=== PATIENT | female | born 1990 ===

== ENCOUNTER 2021-10-22 10:13 | Emergency (ER) | payer SELFPAY ==
[2021-10-22] MEDS ORDERED: ONDANSETRON 4 MG ODT TAB PO ONE (11:59)
[2021-10-22] MEDS ORDERED: ACETAMINOPHEN 325 MG TAB PO ONE (11:59)
--- NOTE | 2021-10-22 12:03 | Emergency Department Report ---
HPI - General Chief Complaint: Abdominal Pain Time Seen by Provider: 10/22/21 11:48 - HPI HPI: 30-year-old female presents to the emergency department with complaint of right flank pain with radiation to the lower abdomen, and nausea with 1 episode of vom iting. The flank and abdominal pain has been going on since last night but worsened this morning, when the episode of vomiting occurred. Patient took an Azo for treatment thinking that she had some type of kidney infection. She denies any vaginal bleeding, dysuria, vaginal discharge, fever, but does admit to some chills. Patient is currently 8 weeks . With this she is G2, P0. She has not yet seen an SAIL REPAIR PERSON but says she made an appointment for clinic in the next few weeks. No recent travel or sick contacts at home. ED Past Medical Hx - Past Medical History Previous Medical History?: No - Surgical History Past Surgical History?: No ED Review of Systems ROS: Stated complaint: ABD PAIN Other details as noted in HPI Comment: All other systems reviewed and negative Constitutional: denies: chills, fever Eyes: denies: eye pain, vision change ENT: denies: ear pain, throat pain Respiratory: denies: cough, shortness of breath Cardiovascular: denies: chest pain, palpitations Gastrointestinal: abdominal pain, nausea, vomiting Genitourinary: denies: dysuria, discharge Musculoskeletal: back pain. denies: arthralgia Skin: denies: rash, lesions Neurological: denies: headache, weakness Physical Exam - Physical Exam Vital Signs: Vital Signs 10/22/21 11:43 Temperature 98 F Pulse Rate 84 Respiratory 16 Rate Blood Pressure 110/51 [Left] O2 Sat by Pulse 98 Oximetry Physical Exam: GENERAL: The patient is well-developed well-nourished. HENT: Normocephalic. Atraumatic. Patient has moist mucous membranes. EYES: Extraocular motions are intact. NECK: Supple. Trachea is midline. CHEST/LUNGS: Clear to auscultation. There is no respiratory distress noted. HEART/CARDIOVASCULAR: Regular. There is no tachycardia. There is no murmur. ABDOMEN: Abdomen is soft, nontender. Patient has normal bowel sounds. SKIN: Skin is warm and dry. NEURO: The patient is awake, alert, and oriented. The patient is cooperative. The patient has no focal neurologic deficits. Normal speech. MUSCULOSKELETAL: There is no tenderness or deformity. There is no limitation range of motion. BACK: No midline thoracic or lumbar tenderness to palpation. There is mild right-sided CVA tenderness to palpation that she describes as "feeling like a bruise." ED Course Vital Signs 10/22/21 11:43 Temperature 98 F Pulse Rate 84 Respiratory 16 Rate Blood Pressure 110/51 [Left] O2 Sat by Pulse 98 Oximetry ED Medical Decision Making - Lab Data Result diagrams: 10/22/21 12:10 10/22/21 12:10 Lab Results 10/22/21 10/22/21 10/22/21 Range/Units 12:10 12:10 12:10 WBC 10.7 (4.5-11.0) K/mm3 RBC 4.33 (3.65-5.03) M/mm3 Hgb 12.1 (10.1-14.3) gm/dl Hct 36.4 (30.3-42.9) % MCV 84 (79-97) fl MCH 28 (28-32) pg MCHC 33 (30-34) % RDW 13.6 (13.2-15.2) % Plt Count 353 (140-440) K/mm3 Lymph % (Auto) 8.3 L (13.4-35.0) % [place] % (Auto) 2.2 (0.0-7.3) % Eos % (Auto) 0.1 (0.0-4.3) % Baso % (Auto) 0.3 (0.0-1.8) % Lymph # (Auto) 0.9 L (1.2-5.4) K/mm3 [place] # (Auto) 0.2 (0.0-0.8) K/mm3 Eos # (Auto) 0.0 (0.0-0.4) K/mm3 Baso # (Auto) 0.0 (0.0-0.1) K/mm3 Seg Neutrophils % 89.1 H (40.0-70.0) % Seg Neutrophils # 9.6 H (1.8-7.7) K/mm3 Sodium 136 L (137-145) mmol/L Potassium 4.0 (3.6-5.0) mmol/L Chloride 101.4 (98-107) mmol/L Carbon Dioxide 19 L (22-30) mmol/L Anion Gap 20 mmol/L BUN 9 (7-17) mg/dL Creatinine 0.4 L (0.6-1.2) mg/dL Estimated GFR > 60 ml/min BUN/Creatinine Ratio 23 % Glucose 96 (65-100) mg/dL Calcium 8.9 (8.4-10.2) mg/dL Total Bilirubin < 0.20 (0.1-1.2) mg/dL AST 15 (5-40) units/L ALT 20 (7-56) units/L Alkaline Phosphatase 69 (35-129) units/L Total Protein 6.9 (6.3-8.2) g/dL Albumin 3.7 L (3.9-5) g/dL Albumin/Globulin Ratio 1.2 % Lipase 23 (13-60) units/L HCG, Quant [id number] H (0-4) mIU/mL Urine Color (Yellow) Urine Turbidity (Clear) Urine pH (5.0-7.0) Ur Specific [place] (1.003-1.030) Urine Protein (Negative) mg/dL Urine Glucose (UA) (Negative) mg/dL Urine Ketones (Negative) mg/dL Urine Blood (Negative) Urine Nitrite (Negative) Urine Bilirubin (Negative) Urine Urobilinogen (<2.0) mg/dL Ur Leukocyte Esterase (Negative) Urine WBC (Auto) (0.0-6.0) /HPF Urine RBC (Auto) (0.0-6.0) /HPF U Epithel Cells (Auto) (0-13.0) /HPF Urine Mucus /HPF 10/22/21 Range/Units Unknown WBC (4.5-11.0) K/mm3 RBC (3.65-5.03) M/mm3 Hgb (10.1-14.3) gm/dl Hct (30.3-42.9) % MCV (79-97) fl MCH (28-32) pg MCHC (30-34) % RDW (13.2-15.2) % Plt Count (140-440) K/mm3 Lymph % (Auto) (13.4-35.0) % [place] % (Auto) (0.0-7.3) % Eos % (Auto) (0.0-4.3) % Baso % (Auto) (0.0-1.8) % Lymph # (Auto) (1.2-5.4) K/mm3 [place] # (Auto) (0.0-0.8) K/mm3 Eos # (Auto) (0.0-0.4) K/mm3 Baso # (Auto) (0.0-0.1) K/mm3 Seg Neutrophils % (40.0-70.0) % Seg Neutrophils # (1.8-7.7) K/mm3 Sodium (137-145) mmol/L Potassium (3.6-5.0) mmol/L Chloride (98-107) mmol/L Carbon Dioxide (22-30) mmol/L Anion Gap mmol/L BUN (7-17) mg/dL Creatinine (0.6-1.2) mg/dL Estimated GFR ml/min BUN/Creatinine Ratio % Glucose (65-100) mg/dL Calcium (8.4-10.2) mg/dL Total Bilirubin (0.1-1.2) mg/dL AST (5-40) units/L ALT (7-56) units/L Alkaline Phosphatase (35-129) units/L Total Protein (6.3-8.2) g/dL Albumin (3.9-5) g/dL Albumin/Globulin Ratio % Lipase (13-60) units/L HCG, Quant (0-4) mIU/mL Urine Color [place] (Yellow) Urine Turbidity Clear (Clear) Urine pH 7.0 (5.0-7.0) Ur Specific [place] 1.010 (1.003-1.030) Urine Protein <15 mg/dl (Negative) mg/dL Urine Glucose (UA) Neg (Negative) mg/dL Urine Ketones Neg (Negative) mg/dL Urine Blood Lg (Negative) Urine Nitrite Negative (Negative) Urine Bilirubin Neg (Negative) Urine Urobilinogen 4.0 (<2.0) mg/dL Ur Leukocyte Esterase Neg (Negative) Urine WBC (Auto) 5.0 (0.0-6.0) /HPF Urine RBC (Auto) > 182.0 (0.0-6.0) /HPF U Epithel Cells (Auto) 6.0 (0-13.0) /HPF Urine Mucus Few /HPF - Radiology Data Radiology results: report reviewed US OB <= 14 weeks fetus INDICATION / CLINICAL INFORMATION: abd pain, . TECHNIQUE: Transabdominal. COMPARISON: None available. FINDINGS: UTERUS: Appears within normal limits. GESTATIONAL SAC: Intrauterine in location. YOLK SAC: No significant abnormality. EMBRYO/FETUS: - [place]-Rump Length = 20.2 cm - Heart Rate, beats per minute (if present) = 179 beats per minute ADNEXA: No significant abnormality. FREE FLUID: None. ADDITIONAL FINDINGS: None. IMPRESSION: 1. Single, living intrauterine with estimated sonographic age of 9 weeks 5 days. US renal BILAT INDICATION / CLINICAL INFORMATION: right flank pain. COMPARISON: None available. FINDINGS: RIGHT KIDNEY: Size = 10.2 cm. - Echogenicity: Normal. - Cortical thickness: Normal. - Hydronephrosis: None. - Cyst or mass: 1.6 m right superior frontal simple appearing kidney cyst. - Stones: None seen.. LEFT KIDNEY: Size = 10.7 cm. - Echogenicity: Normal. - Cortical thickness: Normal. - Hydronephrosis: None. - Cyst or mass: None. - Stones: None seen.. URINARY BLADDER: No significant abnormality. FREE FLUID: None. ADDITIONAL FINDINGS: None. IMPRESSION 1. No significant sonographic abnormality of the kidneys. - Medical Decision Making This patient patient presents to the emergency department with some right-sided flank pain and abdominal pain while . The patient thinks she is about 8 weeks . She denies any vaginal bleeding. Labs are mostly unremarkable except for hematuria seen on urinalysis and a very elevated beta hCG. ultrasound shows a live intrauterine at about 9 weeks. A renal ultrasound did not show any acute process. Given the patient's symptoms and the hematuria, without any vaginal bleeding, I wonder if the patient may have passed a small kidney stone. Vital signs reassuring including being afebrile. She was reevaluated multiple times over multiple hours and is feeling greatly improved. She will be discharged home to follow-up with primary care and SAIL REPAIR PERSON. Critical Care Time: No Critical care attestation.: If time is entered above; I have spent that time in minutes in the direct care of this critically ill patient, excluding procedure time. ED Disposition Clinical Impression: Flank pain Qualifiers: Weeks of gestation: 9 weeks Qualified Code(s): Z3A.09 - 9 weeks gestation of Hematuria Qualifiers: Hematuria type: unspecified type Qualified Code(s): R31.9 - Hematuria, unsp ecified Abdominal pain Qualifiers: Abdominal location: unspecified location Qualified Code(s): R10.9 - Unspecified abdominal pain Disposition: 01 HOME / SELF CARE / HOMELESS Is pt being admited?: No Condition: Stable Instructions: Flank Pain, Adult, Abdominal Pain During , First Trimester of , Abdominal Pain (ED) Additional Instructions: Please follow-up with your primary care physician and SAIL REPAIR PERSON in the next few days. Return to the emergency department with any worsening of your symptoms, new or concerning symptoms not addressed during this current emergency department visit, or with any acute distress. Referrals: PRIMARY CARE, [Primary Care Provider] - 2-3 Days OBGYN, Your [Other] - 2-3 Days Time of Disposition: 15:41
[2021-10-22 12:50] LABS: Basophils % (Auto) 0.3 % (0.0-1.8); Eosinophils % (Auto) 0.1 % (0.0-4.3); Hematocrit 36.4 % (30.3-42.9); Hemoglobin 12.1 gm/dl (10.1-14.3); Lymphocytes # (Auto) 0.9 K/mm3 (1.2-5.4); Lymphocytes % (Auto) 8.3 % (13.4-35.0); Mean Corpuscular HGB Conc 33 % (30-34); Mean Corpuscular Volume 84 fl (79-97); Monocytes # (Auto) 0.2 K/mm3 (0.0-0.8); Monocytes % (Auto) 2.2 % (0.0-7.3); Platelet Count 353 K/mm3 (140-440); Red Blood Count 4.33 M/mm3 (3.65-5.03); Red Cell Distribution Width 13.6 % (13.2-15.2)
[2021-10-22 13:14] LABS: Alanine Aminotransferase 20 units/L (7-56); Albumin 3.7 g/dL (3.9-5); Blood Urea Nitrogen 9 mg/dL (7-17); Calcium 8.9 mg/dL (8.4-10.2); Hemolysis Index 8
[2021-10-22 13:21] LABS: BUN/Creatinine Ratio 23
--- NOTE | 2021-10-22 14:29 | Ultrasound Report ---
US OB <= 14 weeks fetus INDICATION / CLINICAL INFORMATION: abd pain, . TECHNIQUE: Transabdominal. COMPARISON: None available. FINDINGS: UTERUS: Appears within normal limits. GESTATIONAL SAC: Intrauterine in location. YOLK SAC: No significant abnormality. EMBRYO/FETUS: - [place]-R[place] Length = 20.2 cm - Heart Rate, beats per minute (if present) = 179 beats per minute ADNEXA: No significant abnormality. FREE FLUID: None. ADDITIONAL FINDINGS: None. IMPRESSION: 1. Single, living intrauterine with estimated sonographic age of 9 weeks 5 days. Signer Name: Jean Pierre Juares MD Signed: 10/22/2021 2:22 PM Workstation Name: [id number]
--- NOTE | 2021-10-22 14:30 | Ultrasound Report ---
US renal BILAT INDICATION / CLINICAL INFORMATION: right flank pain. COMPARISON: None available. FINDINGS: RIGHT KIDNEY: Size = 10.2 cm. - Echogenicity: Normal. - Cortical thickness: Normal. - Hydronephrosis: None. - Cyst or mass: 1.6 m right superior frontal simple appearing kidney cyst. - Stones: None seen.. LEFT KIDNEY: Size = 10.7 cm. - Echogenicity: Normal. - Cortical thickness: Normal. - Hydronephrosis: None. - Cyst or mass: None. - Stones: None seen.. URINARY BLADDER: No significant abnormality. FREE FLUID: None. ADDITIONAL FINDINGS: None. IMPRESSION 1. No significant sonographic abnormality of the kidneys. Signer Name: Jean Pierre Juares MD Signed: 10/22/2021 2:23 PM Workstation Name: [id number]
[2021-10-22 15:26] LABS: Bilirubin,Urine NEG (Negative); Blood,Urine LG (Negative); Color,Urine Amber (Yellow); Mucus,Urine FEW /HPF; Protein,Urine <15 mg/dL mg/dL (Negative)
[2021-10-22 15:30] LABS: RBC,Urine > 182.0 /HPF (0.0-6.0)
[2021-10-22 15:57] VITALS: BP 122/67
== END 2021-10-22 15:57 | disposition home or self-care (01) ==
LOC: ED 10:13
DX: O26.891 Other specified pregnancy related conditions, first trimester (principal); R10.9 Unspecified abdominal pain
CPT/HCPCS: 36415; 76770; 76801; 80053; 81001; 83690; 84702; 85025; 99284; J3490; Q0162

== ENCOUNTER 2022-05-09 23:41 | Inpatient (IN) | payer SELFPAY ==
--- NOTE | 2022-05-10 00:29 | History and Physical Report ---
History of Present Illness Date of examination: 05/10/22 Date of admission: 05/10/2022 Chief complaint: Contractions History of present illness: 31 y/o at 37-2/7 weeks presents to OBT reporting regular and painful contractions every 3 minutes. No VB or LOF. Good FM. In OBT, SVE= 7/90%/-1. Cervix changed to 8 cm dilated with SROM. The patient is admitted to labor and delivery in active labor. Past History Past Medical History: no pertinent history Past Surgical History: no surgical history Family/Genetic History: none Social history: no significant social history - Obstetrical History Expected Date of Delivery: 05/29/22 Actual Gestation: 37 Week(s) 2 Day(s) : 2 Para: 1 Hx # Term Pregnancies: 0 Number of Pregnancies: 1 Number of Living Children: 1 Medications and Allergies Allergies Allergy/AdvReac Type Severity Reaction Status Date / Time No Known Allergies Allergy Verified 12/28/21 07:26 Home Medications Medication Instructions Recorded Confirmed Last Taken Type No Known Home Medications [No 04/21/20 04/21/20 Unknown History Reported Home Medications] - Vital Signs Vital signs: Vital Signs Resp Pulse Ox 14 100 05/10/22 00:12 05/10/22 00:12 Temp Pulse Resp BP Pulse Ox 62 14 109/68 100 05/10/22 00:20 05/10/22 00:12 05/10/22 00:20 05/10/22 00:12 - Physical Exam Breasts: Positive: normal Cardiovascular: Regular rate Lungs: Positive: Normal air movement Abdomen: Positive: normal appearance Genitourinary (Female): Positive: normal external genitalia, normal perenium Vulva: both: normal Vagina: Positive: normal moisture Uterus: Positive: enlarged Adnexa: both: normal Anus/Rectum: Positive: normal perianal skin Extremities: Positive: normal Deep Tendon Reflex Grade: Normal +2 - Obstetrical FHR: category 1 Uterine Contraction Monitor Mode: External Cervical Dilatation: 8 Cervical Effacement Percentage: 90 station: -1 Uterine Contraction Frequency (min): 3 Uterine Contraction Pattern: Regular Results All other labs normal. Ultrasound: pending Assessment and Plan - Patient Problems (1) 37 weeks gestation of Current Visit: Yes Status: Acute Plan to address problem: care is up[facility]to[facility]date at [facility] The result of the GBS status is unknown at this time. Tx with PCN only if there are risk factors per 2010 CDC MMWR guidelines. (2) Active labor at term Current Visit: Yes Status: Acute Plan to address problem: In OBT, SVE= 7/90%/-1. Cervix changed to 8 cm dilated with SROM. The patient is admitted to labor and delivery in active labor. Expectant management for now.
[2022-05-10] MEDS ORDERED: fentaNYL 100 MCG/2 ML INJ IV PRN (00:30)
[2022-05-10] MEDS ORDERED: LACTATED RINGERS 1,000 ML IV SCH (00:30)
[2022-05-10] MEDS ORDERED: METHYLERGONOVINE MALEATE 0.2 MG/ML VIAL IM PRN (00:30)
[2022-05-10] MEDS ORDERED: BUTORPHANOL 2 MG/1 ML INJ IV PRN (00:30)
[2022-05-10] MEDS ORDERED: ACETAMINOPHEN 325 MG TAB PO PRN ×2 (00:30→01:40)
[2022-05-10] MEDS ORDERED: CARBOPROST TROMETHAMINE 250 MCG/1 ML INJ IM PRN (00:30)
[2022-05-10] MEDS ORDERED: LIDOCAINE (2%) 20 MG/1 ML VIAL 20 ML MDV INFILTRATI ONE ×4 (00:51→02:23)
[2022-05-10] MEDS ORDERED: OXYTOCIN DRIP 30 UNITS/500 ML BAG IV SCH (01:00)
[2022-05-10 01:06] LABS: Hematocrit 38.2 % (30.3-42.9); Hemoglobin 12.9 gm/dl (10.1-14.3); Mean Corpuscular HGB Conc 34 % (30-34); Mean Corpuscular Volume 84 fl (79-97); Platelet Count 277 K/mm3 (140-440); Red Blood Count 4.52 M/mm3 (3.65-5.03); Red Cell Distribution Width 17.6 % (13.2-15.2)
--- NOTE | 2022-05-10 01:39 | Procedure Note ---
OB Delivery Note - Delivery Date of Delivery: 05/10/22 Surgeon: MELANIE GARCIA Collar Pointer: MELANIE GARCIA Estimated blood loss: 300cc - Vaginal Delivery presentation: vertex Delivery position: OA Intrapartum events: precipitous labor- <3hr Delivery induction: none Delivery monitor: external uterine, internal FHT Route of delivery: Delivery placenta: spontaneous Delivery cord: nuchal cord (X1), 3 umbilical vessels Episiotomy: none Delivery laceration: 2nd degree, other (Left periurethral laceration) Delivery repair: vicryl Anesthesia: local Delivery comments: Precipitous spontaneous vaginal delivery. Nuchal cord x1. Second-degree perineal laceration repaired with 2-0 Vicryl and 3-0 Vicryl. Left periurethral laceration repaired with 3-0 Vicryl. All instruments were removed from the patient's vagina. A vaginal sweep was performed to ensure there were no retained instruments. - A at 1 minute: 8 at 5 minutes: 9 Gender: Female
[2022-05-10] MEDS ORDERED: BENZOCAINE/MENTHOL 20/0.5% TOP SPRAY 56 GM TP PRN (01:40)
[2022-05-10] MEDS ORDERED: MAGNESIUM HYDROXIDE (MOM) ORAL LIQD UDC PO PRN (01:40)
[2022-05-10] MEDS ORDERED: HYDROcodone/ACETAMINOPHEN 5-325 MG TAB PO PRN (01:40)
[2022-05-10] MEDS ORDERED: LANOLIN/ZINC/DIMETHICONE (LANSINOH) 7 GM TP PRN (01:40)
[2022-05-10] MEDS ORDERED: WITCH HAZEL/ GLYCERIN PAD TP PRN (01:40)
[2022-05-10] MEDS ORDERED: OXYTOCIN DRIP 30,000 MILLIUNITS/500 ML BAG IV ONE (01:58)
[2022-05-10] MEDS: DOCUSATE SODIUM 100 MG CAP PO SCH (10:17)
[2022-05-10] MEDS: IBUPROFEN 800 MG TAB PO SCH (20:46)
[2022-05-11] MEDS: DOCUSATE SODIUM 100 MG CAP PO SCH ×2 (00:14→09:37)
[2022-05-11] MEDS: IBUPROFEN 800 MG TAB PO SCH ×2 (06:16→09:38)
[2022-05-11 08:12] LABS: Hematocrit 38.6 % (30.3-42.9); Hemoglobin 12.3 gm/dl (10.1-14.3); Mean Corpuscular HGB Conc 32 % (30-34); Mean Corpuscular Volume 87 fl (79-97); Platelet Count 225 K/mm3 (140-440); Red Blood Count 4.43 M/mm3 (3.65-5.03); Red Cell Distribution Width 17.3 % (13.2-15.2)
--- NOTE | 2022-05-11 08:24 | Progress Note ---
Assessment and Plan PPD#1 doing well 1. Routine care and discharge home later today Subjective Date of service: 05/11/22 Principal diagnosis: PPD#1, Interval history: pt has no complaints and wants to go home today. Denies pelvic pain or heavy vag bleed and is breast feeding. Declines contraception at this time Objective - Constitutional Vitals: Vital Signs - 12hr 05/10/22 05/10/22 05/10/22 20:34 20:46 21:46 Temperature 98.3 F Pulse Rate 68 Respiratory 18 20 18 Rate Blood Pressure 106/69 O2 Sat by Pulse 97 Oximetry 05/11/22 05/11/22 05/11/22 00:43 06:16 07:16 Temperature 98.2 F Pulse Rate 72 Respiratory 18 18 18 Rate Blood Pressure 101/62 O2 Sat by Pulse 96 Oximetry General appearance: Present: no acute distress - Neck Neck: normal ROM - Respiratory Respiratory effort: normal - Breasts Breasts: deferred - Cardiovascular Rhythm: regular Extremities: No edema - Gastrointestinal General gastrointestinal: Present: soft, non-tender - Genitourinary Female genitourinary: deferred - Integumentary Integumentary: warm, dry - Neurologic Neurologic: moves all extremities - Psychiatric Psychiatric: cooperative - Labs CBC & Chem 7: 05/11/22 07:39 Labs: Abnormal lab results 05/11/22 Range/Units 07:39 RDW 17.3 H (13.2-15.2) % Medications & Allergies - Medications Allergies/Adverse Reactions: Allergies No Known Allergies Allergy (Verified 12/28/21 07:26) Home Medications: Home Medications Medication Instructions Recorded Confirmed Last Taken Type No Known Home Medications [No 04/21/20 05/10/22 Unknown History Reported Home Medications] Active Medications: Generic Name Dose Route Start Last Admin Trade Name Freq PRN Reason Stop Dose Admin Acetaminophen 650 mg 05/10/22 01:40 Acetaminophen 325 Mg Tab PO Q4H PRN Pain MILD(1-3)/Fever >100.5/LARIOS Hydrocodone Bitart/Acetaminophen 2 each 05/10/22 01:40 Hydrocodone/Acetaminophen 5-325 Mg Tab PO Q6H PRN Pain, Moderate (4-6) Benzocaine/Menthol 1 spray 05/10/22 01:40 05/10/22 10:17 Benzocaine/Menthol 20/0.5% [place] 56 Gm TP 1 spray PRN PRN Administration Episiotomy Pain Docusate Sodium 100 mg 05/10/22 10:00 05/11/22 00:14 Docusate Sodium 100 Mg Cap PO 100 mg BID MILLI Administration Ibuprofen 800 mg 05/10/22 02:00 05/11/22 06:16 Ibuprofen 800 Mg Tab PO 800 mg Q6HR MILLI Administration Magnesium Hydroxide 30 ml 05/10/22 01:40 Magnesium Hydroxide (Mom) Oral Liqd Udc PO HS PRN Constipation Multi-Ingredient Ointment 1 applic 05/10/22 01:40 Lanolin/Zinc/Dimethicone (Lansinoh) 7 Gm TP PRN PRN Sore Nipples Witch Mariam/Glycerin 1 each 05/10/22 01:40 05/10/22 10:17 Witch [place]/ Glycerin Pad TP 1 each PRN PRN Administration Hemorrhoid/cleansing/soothing
--- NOTE | 2022-05-11 08:26 | Discharge Summary ---
Providers - Providers Date of Admission: 05/10/22 00:30 Attending physician: AIDAN CROFT Primary care physician: [facility] Hospitalization Reason for admission: IUP at term Delivery: Episiotomy: none Laceration: 2nd degree complications: none [place] baby: female Hospital course: Term precipitous vag delivery uncomplicated and uneventful course. pt desired to go home on day #1 Condition at discharge: Good Disposition: 01 HOME / SELF CARE / HOMELESS Plan - Provider Discharge Summary Additional instructions: [] Smoking cessation referral if applicable(refer to patient education folder for contact #) [] Refer to [facility] Book[facility] Call your doctor immediately for: * Fever > 100.5 * Heavy vaginal bleeding ( >1 pad per hour) * Severe persistent headache * Shortness of breath * Reddened, hot, painful area to leg or breast * Drainage or odor from incision. * Keep incision clean and dry at all times and follow doctor's instructions regarding bathing/showering - Follow up plan Follow up: PRIMARY CARE, [Primary Care Provider] - 7 Days Forms: [facility] Discharge Summary
[2022-05-11 12:23] LABS: Hepatitis C Virus Antibody Non-Reactive (NonReactive)
[2022-05-11 15:02] VITALS: BP 108/67
== END 2022-05-11 14:48 | disposition home or self-care (01) | DRG 807 ==
LOC: TRG 23:41 → APU 23:43 → LD 05-10 00:30 → TRG 05-10 00:30 → OB 05-10 09:15
PROVIDERS: ADMIT Obstetrics & Gynecology; ATTEND Obstetrics & Gynecology
PROC: 10E0XZZ Delivery of Products of Conception, External Approach (ICD-10-PCS; principal; 2022-05-10)
PROC: 0KQM0ZZ Repair Perineum Muscle, Open Approach (ICD-10-PCS; 2022-05-10)
DX: O62.3 Precipitate labor (principal); Z37.0 Single live birth; Z3A.37 37 weeks gestation of pregnancy; Z20.822 Contact with and (suspected) exposure to COVID-19; O69.81X0 Labor and delivery complicated by cord around neck, without compression, not applicable or unspecified; O70.1 Second degree perineal laceration during delivery
CPT/HCPCS: 36415; 85027; 86592; 86706; 86762; 86803; 86850; 86900; 86901; 87806; G0378; U0003